=== PATIENT | male | born 1965 | race Caucasian/White ===

== ENCOUNTER → 2016-09-05 | Outpatient (REF) ==
[~2016-09-05] MED LIST: 00186-0372-20 IH; ANTI-DIARRHEAL2 MG PO; ATIVAN 1MG T1 MG/TAB PO; ATROVENT INHALE14 GM; ATROVENT INHALE14 GM IH; DOXYCYCLINE 10100 MG PO; FOLIC ACID 11 MG/TA1 PO; IPRATROPIUM BROM3 M1 IH; LEVAQUIN 750MG750 M1 PO; MULTI VITAMINS1 TAB PO; NICODERM C21 MG/PATC TD; NO HOME MEDICATIONS; NORCO 325 MG-51 TAB PO; PAXIL 10MG10 MG PO; PREDNISONE10 MG PO; PREDNISONE20 MG PO; PROAIR HFA0.09 MG/AC IH; RT ADVAIR 128 DISKUS IH; SEROQUEL 1100 MG/TAB PO; SEROQUEL50 MG PO; STIOLTO RESPIMAT4 GM IH; THIAMINE 1100 MG/TAB PO; TOPROL XL 50MG50 MG PO; ULTRAM 50MG TAB50 MG PO; VENTOLIN0.09 MG IH; VOLTAREN 75 DR75 MG; ZESTRIL40 MG PO; ZOCOR 40MG40 MG PO; ZOFRAN 4MG T4 MG/TAB PO; bp med
== END ==
LOC: WSOH 13:20
DX: Z02.89 Encounter for other administrative examinations (principal)

== ENCOUNTER 2016-12-25 14:50 | Emergency (ER) | payer OTHER ==
[~2016-12-25] VITALS: Ht 175.3 cm; Wt 87.3 kg
[~2016-12-25 14:50] MED LIST changes: -LEVAQUIN 750MG750 M1 PO; -PROAIR HFA0.09 MG/AC IH; -STIOLTO RESPIMAT4 GM IH; -bp med
[2016-12-25 14:53] VITALS: BP 131/66; TEMP 98.4
[2016-12-25] MEDS ORDERED: PROAIR HFA0.09 MG/AC IH (15:58)
[2016-12-25] MEDS ORDERED: STIOLTO RESPIMAT4 GM IH (15:59)
[2016-12-25 16:23] LABS: BASO # 0.1 (0.0-0.2); BASO % 0.8 % (0.0-2.0); EOS # 0.1 (0.0-0.7); EOS % 0.4 % (0-4.0); GRAN # 11.1 (1.4-6.5); GRAN % 78.6 % (42.2-75.2); HEMATOCRIT 39.9 % (42.0-52.0); HEMOGLOBIN 13.4 g/dl (13.5-18.0); LYMPH # 1.8 (1.2-3.4); LYMPH % 12.7 % (20.0-51.0); MEAN CELL VOLUME 88 fl (80.0-100.0); MEAN CORPUSCULAR HEMOGLOBIN 29 pg (27.0-31.0); MEAN CORPUSCULAR HGB CONC 34 g/dl (33.0-37.0); MEAN PLATELET VOLUME 10.3 fl (7.4-10.4); MONO % 7.1 % (1.7-9.3); PLATELET COUNT 273 K/mm3 (130-400); RED BLOOD COUNT 4.56 M/mm3 (4.20-5.60); WHITE BLOOD COUNT 14.1 K/mm3 (4.8-10.8)
[2016-12-25 17:01] LABS: PH 5 (5-8); SQUAMOUS EPITHELIAL 0-2 /hpf; URINE APPEARANCE Clear; URINE BACTERIA None Seen /hpf; URINE BILIRUBIN Negative (NEGATIVE); URINE BLOOD Negative (NEGATIVE); URINE COLOR Amber; URINE GLUCOSE Negative (NEGATIVE); URINE KETONE Trace (NEGATIVE); URINE RBC 0-2 /hpf; URINE UROBILINOGEN Negative (NEGATIVE); URINE WBC 0-2 /hpf
[2016-12-25 17:01] LABS: ADJUSTED CALCIUM 9.4 mg/dL (8.4-10.2); ALBUMIN 4.2 gm/dL (3.5-5.0); BILIRUBIN,TOTAL 0.8 mg/dL (0.0-1.0); CALCIUM 9.6 mg/dL (8.4-10.2); CREATININE, serum 0.88 mg/dL (0.66-1.25); POTASSIUM 3.6 mmol/L (3.4-5.0); TOTAL PROTEIN 7.6 gm/dL (6.4-8.2)
[2016-12-25 18:17] LABS: C-REACTIVE PROTEIN 34.7 mg/dL (0.0-0.9)
[2016-12-25] MEDS ORDERED: NORCO 325 MG-51 TAB PO (18:55)
[2016-12-25] MEDS ORDERED: LEVAQUIN 750MG750 M1 PO (18:55)
[2016-12-25 19:05] VITALS: PULSE 74
== END 2016-12-25 19:07 | disposition home or self-care (01) ==
LOC: COL.ER 14:50
PROVIDERS: Nurse Practitioner
DX: J18.9 Pneumonia, unspecified organism (principal); F17.210 Nicotine dependence, cigarettes, uncomplicated; J44.9 Chronic obstructive pulmonary disease, unspecified; J45.909 Unspecified asthma, uncomplicated; R10.11 Right upper quadrant pain
CPT/HCPCS: J1885; J2405; J3010; J7030; Q9967

== ENCOUNTER → 2017-01-01 | Outpatient (CLI) | payer OTHER ==
[~2017-01-01] MED LIST changes: +LEVAQUIN 750MG750 M1 PO; +PROAIR HFA0.09 MG/AC IH; +STIOLTO RESPIMAT4 GM IH; +bp med
== END ==
LOC: COL.PUL 01-01 15:00 → COL.RAD 16:13
DX: J44.9 Chronic obstructive pulmonary disease, unspecified (principal)

== ENCOUNTER 2017-03-03 02:12 | Emergency (ER) | payer OTHER ==
[~2017-03-03] VITALS: Ht 172.7 cm; Wt 87.7 kg
[~2017-03-03 02:12] MED LIST changes: -bp med
[2017-03-03 02:15] VITALS: TEMP 97.9
[2017-03-03] MEDS ORDERED: STIOLTO RESPIMAT4 GM IH (02:17)
[2017-03-03] MEDS ORDERED: bp med (02:18)
[2017-03-03 02:47] LABS: BASO # 0.2 (0.0-0.2); BASO % 2.2 % (0.0-2.0); EOS # 0.7 (0.0-0.7); EOS % 7.9 % (0-4.0); GRAN # 4.1 (1.4-6.5); GRAN % 43.9 % (42.2-75.2); HEMATOCRIT 49.3 % (42.0-52.0); HEMOGLOBIN 16.6 g/dl (13.5-18.0); LYMPH # 3.4 (1.2-3.4); LYMPH % 36.4 % (20.0-51.0); MEAN CELL VOLUME 86 fl (80.0-100.0); MEAN CORPUSCULAR HEMOGLOBIN 29 pg (27.0-31.0); MEAN CORPUSCULAR HGB CONC 34 g/dl (33.0-37.0); MEAN PLATELET VOLUME 9.1 fl (7.4-10.4); MONO # 0.8 (0.1-0.6); MONO % 8.7 % (1.7-9.3); PLATELET COUNT 289 K/mm3 (130-400); RED BLOOD COUNT 5.73 M/mm3 (4.20-5.60); REDCELL DISTRIBUTION WIDTH-CV 13.3 % (11.5-14.5); WHITE BLOOD COUNT 9.3 K/mm3 (4.8-10.8)
[2017-03-03] MEDS ORDERED: PREDNISONE20 MG PO (02:55)
[2017-03-03] MEDS ORDERED: LEVAQUIN 750MG750 M1 PO (02:55)
[2017-03-03 02:58] LABS: ANION GAP 11 mmol/L (7-16); BLOOD UREA NITROGEN 13 mg/dL (9-20); CALCIUM 9.3 mg/dL (8.4-10.2); CARBON DIOXIDE 21 mmol/L (22-30); CHLORIDE 105 mmol/L (98-107); CREATININE, serum 0.81 mg/dL (0.66-1.25); GLUCOSE 101 mg/dL (74-106); POTASSIUM 4.1 mmol/L (3.4-5.0); SODIUM 137 mmol/L (137-145)
[2017-03-03 03:07] LABS: B-TYPE NATRIURETIC PEPTIDE 26 pg/mL (0-125)
[2017-03-03 03:15] LABS: TROPONIN-I < 0.012 ng/mL (0.000-0.034)
[2017-03-03 03:16] LABS: VENOUS BLOOD GAS BE -1.9 (-4-4); VENOUS BLOOD GAS SAO2 96.1 % (60-80); VENOUS BLOOD GAS SITE VENIPUNCTURE
[2017-03-03 03:37] VITALS: BP 137/84; PULSE 77
== END 2017-03-03 03:44 | disposition home or self-care (01) ==
LOC: COL.ER 02:12
PROVIDERS: Emergency Medicine
DX: J44.0 Chronic obstructive pulmonary disease with (acute) lower respiratory infection (principal); J20.9 Acute bronchitis, unspecified; J44.1 Chronic obstructive pulmonary disease with (acute) exacerbation; F17.200 Nicotine dependence, unspecified, uncomplicated; I10 Essential (primary) hypertension
CPT/HCPCS: J2930

== ENCOUNTER 2017-09-12 08:10 | Emergency (ER) | payer BC ==
[~2017-09-12] VITALS: Ht 170.2 cm; Wt 97.7 kg
[~2017-09-12 08:10] MED LIST changes: +bp med
[2017-09-12 08:14] VITALS: BP 181/95; TEMP 97.9
[2017-09-12] MEDS ORDERED: STIOLTO RESPIMAT4 GM IH (08:41)
[2017-09-12] MEDS ORDERED: NORCO 325 MG-51 TAB PO (08:43)
[2017-09-12] MEDS ORDERED: CLEOCIN HCL300 MG PO (08:43)
[2017-09-12 09:02] VITALS: PULSE 85
== END 2017-09-12 09:02 | disposition home or self-care (01) ==
LOC: COL.ER 08:10
DX: J06.9 Acute upper respiratory infection, unspecified (principal); K02.9 Dental caries, unspecified; K04.7 Periapical abscess without sinus; I10 Essential (primary) hypertension; J44.9 Chronic obstructive pulmonary disease, unspecified; Z87.891 Personal history of nicotine dependence

== ENCOUNTER 2017-12-13 10:11 | Emergency (ER) | payer BC ==
[~2017-12-13] VITALS: Ht 172.7 cm; Wt 95.5 kg
[~2017-12-13 10:11] MED LIST changes: +CLEOCIN HCL300 MG PO
[2017-12-13 10:12] VITALS: BP 176/79; TEMP 98.6
[2017-12-13] MEDS ORDERED: NORVASC 5MG5 MG/TAB PO (10:37)
[2017-12-13] MEDS ORDERED: COZAAR 25MG25 MG/TAB PO (10:38)
[2017-12-13] MEDS ORDERED: CELEBREX50 MG PO (10:39)
[2017-12-13] MEDS ORDERED: PREDNISONE20 MG PO (10:49)
[2017-12-13 11:03] VITALS: PULSE 85
== END 2017-12-13 11:00 | disposition home or self-care (01) ==
LOC: COL.ER 10:11
DX: J44.1 Chronic obstructive pulmonary disease with (acute) exacerbation (principal)
CPT/HCPCS: J7512

== ENCOUNTER → 2018-03-29 | Outpatient (CLI) | payer OTHER ==
[~2018-03-29] MED LIST changes: +CELEBREX50 MG PO; +COZAAR 25MG25 MG/TAB PO; +NORVASC 5MG5 MG/TAB PO
== END ==
LOC: COL.RAD 07:00
DX: J32.4 Chronic pansinusitis (principal)

== ENCOUNTER 2018-05-16 12:40 | Emergency (ER) | payer OTHER ==
[~2018-05-16] VITALS: Ht 172.7 cm; Wt 104.5 kg
[2018-05-16 12:48] VITALS: BP 135/80; TEMP 99
[2018-05-16] MEDS ORDERED: STIOLTO RESPIMAT4 GM INH (12:55)
[2018-05-16] MEDS ORDERED: MEDROL 4MG DOSPA4 MG PO (13:16)
[2018-05-16 13:37] VITALS: PULSE 100
== END 2018-05-16 13:35 | disposition home or self-care (01) ==
LOC: COL.ER 12:40
DX: J44.1 Chronic obstructive pulmonary disease with (acute) exacerbation (principal); F17.210 Nicotine dependence, cigarettes, uncomplicated
CPT/HCPCS: J1040

== ENCOUNTER 2018-11-14 15:35 | Emergency (ER) | payer OTHER ==
[~2018-11-14] VITALS: Ht 172.7 cm; Wt 110.9 kg
[~2018-11-14 15:35] MED LIST changes: +MEDROL 4MG DOSPA4 MG PO; +STIOLTO RESPIMAT4 GM INH
[2018-11-14 15:40] VITALS: TEMP 98.3
[2018-11-14 16:07] LABS: BASO # 0.2 (0.0-0.2); BASO % 2.2 % (0.0-2.0); EOS # 0.5 (0.0-0.7); EOS % 7.9 % (0-4.0); GRAN # 3.8 (1.4-6.5); GRAN % 56.3 % (42.2-75.2); HEMATOCRIT 43.6 % (42.0-52.0); HEMOGLOBIN 14.6 g/dl (13.5-18.0); LYMPH # 1.6 (1.2-3.4); LYMPH % 24.6 % (20.0-51.0); MEAN CELL VOLUME 86 fl (80.0-100.0); MEAN CORPUSCULAR HEMOGLOBIN 29 pg (27.0-31.0); MEAN CORPUSCULAR HGB CONC 34 g/dl (33.0-37.0); MEAN PLATELET VOLUME 9.2 fl (7.4-10.4); MONO # 0.6 (0.1-0.6); MONO % 8.4 % (1.7-9.3); PLATELET COUNT 258 K/mm3 (130-400); RED BLOOD COUNT 5.06 M/mm3 (4.20-5.60); REDCELL DISTRIBUTION WIDTH-CV 12.8 % (11.5-14.5)
[2018-11-14] MEDS ORDERED: ATARAX 25MG25 MG/TAB PO (16:11)
[2018-11-14] MEDS ORDERED: PROAIR HFA0.09 MG/AC IH (16:12)
[2018-11-14] MEDS ORDERED: DESYREL 100MG100 MG PO (16:12)
[2018-11-14] MEDS ORDERED: FLEXERIL 1010 MG/TAB PO (16:12)
[2018-11-14] MEDS ORDERED: ALBUTEROL0.83 MG/ML IH (16:12)
[2018-11-14 16:13] LABS: ALBUMIN 4.3 gm/dL (3.5-5.0); BILIRUBIN,TOTAL 0.4 mg/dL (0.0-1.0); CALCIUM 9.8 mg/dL (8.4-10.2); CREATININE, serum 0.94 mg/dL (0.66-1.25); POTASSIUM 4.1 mmol/L (3.4-5.0); TOTAL PROTEIN 7.6 gm/dL (6.4-8.2)
[2018-11-14] MEDS ORDERED: PREDNISONE10 MG PO (18:22)
[2018-11-14] MEDS ORDERED: PROVENTIL0.09 MG/A1 IH (18:35)
[2018-11-14] MEDS ORDERED: FLOVENT DI100 MCG/Ac IH (18:50)
[2018-11-14 19:01] VITALS: BP 149/97; PULSE 93
== END 2018-11-14 19:01 | disposition home or self-care (01) ==
LOC: COL.ER 15:35
PROVIDERS: Emergency Medicine
DX: J44.1 Chronic obstructive pulmonary disease with (acute) exacerbation (principal); F17.210 Nicotine dependence, cigarettes, uncomplicated
CPT/HCPCS: J3475; J7512

== ENCOUNTER → 2020-10-26 | Outpatient (CLI) | payer BC ==
[~2020-10-26] MED LIST changes: +ADVIL200 MG PO; +ALBUTEROL0.83 MG/ML IH; +ANORO IH; +ATARAX 25MG25 MG/TAB PO; -COZAAR 25MG25 MG/TAB PO; +COZAAR100 MG PO; +DESYREL 100MG100 MG PO; +FLEXERIL 1010 MG/TAB PO; +FLOVENT DI100 MCG/Ac IH; +LIPITOR 40MG TA40 MG PO; +NEURONTIN300 MG/CAP PO; +PROVENTIL0.09 MG/A1 IH
== END ==
LOC: COL.CARD
DX: Z51.81 Encounter for therapeutic drug level monitoring (principal)

== ENCOUNTER → 2020-11-08 | Outpatient (CLI) | payer BC | LOC: COL.VAS 12:40 | DX: Z79.899 Other long term (current) drug therapy (principal) ==

== ENCOUNTER 2021-05-10 12:39 | Day surgery (SDC) | payer BC ==
[2021-05-10] VITALS (10 sets, daily range): BP systolic 106–131; BP diastolic 68–94; PULSE 66–80
[~2021-05-10] VITALS: Ht 172.7 cm; Wt 109.3 kg
[~2021-05-10 12:39] MED LIST changes: -ADVIL200 MG PO; -ANORO IH; -LIPITOR 40MG TA40 MG PO; -NEURONTIN300 MG/CAP PO
[2021-05-10] MEDS ORDERED: NEURONTIN300 MG/CAP PO (13:18)
[2021-05-10] MEDS ORDERED: LIPITOR 40MG TA40 MG PO (13:20)
[2021-05-10] MEDS ORDERED: ANORO IH (13:21)
[2021-05-10 13:24] LABS: HEMATOCRIT 44.2 % (42.0-52.0); HEMOGLOBIN 15.4 g/dl (13.5-18.0); MEAN CELL VOLUME 85 fl (80.0-100.0); MEAN CORPUSCULAR HEMOGLOBIN 30 pg (27.0-31.0); MEAN CORPUSCULAR HGB CONC 35 g/dl (33.0-37.0); PLATELET COUNT 294 K/mm3 (130-400); REDCELL DISTRIBUTION WIDTH-CV 12.7 % (11.5-14.5)
[2021-05-10 13:27] LABS: PROTHROMBIN TIME 11.3 SECONDS (9.7-12.8)
[2021-05-10 13:30] LABS: PARTIAL THROMBOPLASTIN TIME 29.5 SECONDS (26.0-37.0)
[2021-05-10 13:35] LABS: CALCIUM 9.3 mg/dL (8.4-10.2); CREATININE, serum 0.83 (0.66-1.25); POTASSIUM 4.5 mmol/L (3.4-5.0)
[2021-05-10] MEDS ORDERED: ADVIL200 MG PO (13:58)
--- NOTE | 2021-05-10 14:42 | NUR ---
SEE MERGE DOCUMENTATION FOR MEDICATION ADMINISTRATION AND INTRA/POST PROCEDURE SEDATION ASSESSMENTS.
--- NOTE | 2021-05-10 16:40 | NUR ---
Pt report given to FILIPE Smith so she may take over cares of pt. He has eaten dinner. Ambulated to toilet with steady gait. Rt radial puncture site remains free of bleeding or complication.
--- NOTE | 2021-05-10 17:05 | NUR ---
12 cc air released from right Tband and dressing applied. Pt up to bathroom with steady gait.
--- NOTE | 2021-05-10 17:20 | NUR ---
INT discontinued intact. Discharge instructions given. Transferred to private car by kale
== END 2021-05-10 17:38 | disposition home or self-care (01) ==
LOC: COL.CAR 12:39
PROVIDERS: Internal Medicine Interventional Cardiology
DX: R94.39 Abnormal result of other cardiovascular function study (principal); I11.0 Hypertensive heart disease with heart failure; I50.30 Unspecified diastolic (congestive) heart failure; Z79.899 Other long term (current) drug therapy; Z20.822 Contact with and (suspected) exposure to COVID-19
CPT/HCPCS: C1769; J1644; J2250; J3010; Q9967